=== PATIENT | female | born 2005 | race Caucasian/White ===

== ENCOUNTER 2024-08-09 15:47 | Emergency (ER) | payer MEDICAID ==
[~2024-08-09] VITALS: Ht 154.9 cm; Wt 86.0 kg
[2024-08-09 15:59] VITALS: BP 110/58; PULSE 99; RESP 16; TEMP 98.1; O2SAT 95
[2024-08-09] MEDS ORDERED: HYDR28CR14 TOP (16:50)
[2024-08-09] MEDS: triamcinolone acetonide 40mg/ml inj IM ONE (16:59)
== END 2024-08-09 17:30 | disposition home or self-care (01) ==
LOC: ER 15:47
DX: L23.7 Allergic contact dermatitis due to plants, except food (principal); Z88.0 Allergy status to penicillin; Z79.899 Other long term (current) drug therapy
CPT/HCPCS: 96372; 99283; J3301